=== PATIENT | female | born 1985 | race Caucasian/White ===

== ENCOUNTER 2022-04-27 23:51 | Emergency (ER) | payer BC, SELFPAY ==
[2022-04-27 23:52] VITALS: BP 115/49; PULSE 80; RESP 18; TEMP 36.8; O2SAT 100; BMI 30.7
--- NOTE | 2022-04-28 00:11 | US_ITS ---
We are attempting to reach an attending provider to discuss findings. An addendum with communication details will be sent when the communication is complete. STUDY: FIRST TRIMESTER OBSTETRICAL ULTRASOUND REASON FOR EXAM: Female, 36 years old bleeding, history of no cardiac activity of an embryo on recent OB ultrasound. LMP: 01/31/2022 TECHNIQUE: Transvaginal TECHNICAL QUALITY: Adequate. PRIOR ULTRASOUND: None. FINDINGS: There is visualization of a single gestational sac in the low lying position. There is an elongated distorted appearance of the gestational sac with a atypical shape. There is a visualized yolk sac. The yolk sac measures 2.4 m. The placenta is non-visualized. There is visualization of an embryo with no cardiac activity, consistent with intrauterine demise. The crown-rump length (CRL) measures 3.9 mm, indicating an estimated gestational age (EGA) of 6 weeks, 2 days. There is inhomogeneous appearance of the soft tissues surrounding the gestational sac. There is low-attenuation measures approximately 6.1 mm suggesting probable subchorionic hemorrhage. The estimated gestation age (EGA) by LMP is 9 weeks, 5 days. The estimated gestation age (EGA) by US is 6 weeks, 2 days. The uterus measures 9.2 x 6.0 x 4.9 cm. There is no demonstrated uterine fibroid. The cervix is closed. Partially visualized nabothian cysts. The right ovary measures 1 x 2.1 x 1.9 cm. There is no right ovarian cyst. There is no visualized right adnexal mass or complex lesion. The left ovary measures 2.5 x 2.1 x 2.0 cm. There is no left ovarian cyst. There is no visualized left adnexal mass or complex lesion. There is minimal fluid in the cul de sac. US/Transvaginal w/Preg US IMPRESSION: demise. The elongated distorted gestational sac is low lying. In combination with the clinical history of heavy bleeding consider spontaneous in progress. Electronically Signed: Corinne Smith MD at 1:40 EST ,
--- NOTE | 2022-04-28 00:12 | EDS_ITS ---
HPI HPI - Female History of Present Illness Chief Complaint: Vag Bld, Preg Informant: patient and spouse/S.O. Narrative Narrative: Patient presents with vaginal bleeding and clots. This is a G3, P1 female. She had miscarriage back in October. She is currently approximately 8 weeks . They were expecting miscarriage. She had a ultrasound this recent Thursday that showed no heartbeat. They were expecting to have some bleeding cramping. Patient has been bleeding for about 2 or so days but just very mildly. Later this evening around 6:00 it got heavier. She had large clot. She brought in one of the clots which is about 2-1/2 x 6 cm. She has had 1 of these at about 10:00. She had another 1 at about 11. She has had cramping with this but does not want anything for pain at this time. She has not seen any definite tissue. She called her OB physician, Dr. Sweet who referred her in here due to recurrent episodes of clot. She is on no anticoagulation. I did review her past outpatient records and find that she is blood type a positive back in December 2016. [facility] Medical History Miscarriage Home Medications vits,calcium no.78-iron fumarate-folic acid 29 mg-1 mg tablet (Prenatabs FA) 1 tab PO DAILY 01/29/17 [History Last Taken 01/28/17 20:00 1] sertraline 50 mg tablet 50 mg PO DAILY 04/27/22 [History Last Taken Unknown] Allergy/AdvReac Type Severity Reaction Status Date / Time hydrocodone [From Vicodin] Allergy Angioedema Verified 04/27/22 23:58 Social History Smoking Status: Never smoker ROS ROS ED Constitutional Constitutional ED: Denies fever(s) Cardiovascular Cardiovascular: Denies chest pain Respiratory/Chest Respiratory/Chest: Denies cough or dyspnea Gastrointestinal Gastrointestinal: Reports abdominal pain; Denies nausea or vomiting Genitourinary Genitourinary ED: Reports other Details: See history of present illness. ; Denies hematuria Musculoskeletal Musculoskeletal: Denies myalgias Integumentary Denies rash Neurologic Neurologic: Denies headache(s) Hematologic/Lymphatic Hematologic/Lymphatic: Denies easy bleeding or easy bruising Allergic/Immunologic Allergic/Immunologic ED: Denies urticaria EXAM Physical Exam Narrative Exam Narrative: Patient awake alert sitting in bed. No acute distress. When I first walked in she had been standing up. No dizziness. HEENT shows no notable pallor. Mucous membranes are moist. Neck is supple Heart is regular without murmur gallop or rub. Peripheral pulses are normal. Lungs are clear bilaterally. Breathing is easy unlabored and oxygen level is normal at 100% on room air saturation. Abdomen is soft. No real tenderness on exam at all. No distention. Bowel sounds are normal. shows no CVA or notable suprapubic tenderness. She does get some intermittent suprapubic cramping. Extremities show no edema or pallor. Const Vital Signs: 04/27/22 23:52 Temperature 98.2 F Temperature Source Temporal Pulse Rate 80 Respiratory Rate 18 Blood Pressure 115/49 L Blood Pressure Mean 71 Pulse Ox 100 Oxygen Delivery Method Room Air MDM MDM MDM Narrative Medical decision making narrative: Pelvic exam was done with nurse Gilda in attendance. External genitalia was normal. There was a clot in the vaginal vault. This was able to be removed. It was about 1 and half centimeters around and about 6 or 7 cm long. I looked through this and did not see any tissue or saclike material. Speculum was introduced. There is a little bit of blood and small clots in the vault. I am not seeing any active bleeding from the cervical os though. We placed a little pressure on the lower pelvic/abdomen area. No bleeding developed. I am not able to see any tissue at the cervical os although the os is soft and open. I called and discussed the case with Dr. Sweet who is on-call for the patient's OB physician Dr. Ortiz. Since the patient is having some bleeding and clots but is not hemorrhaging. She has had about 2 clots passed here. Her hemoglobin is 12 3 when it was about 13 in the office 5 days ago. She is comfortable. Plan will be to have her seen this morning in the office about 4- 1/2 hours from now. She will call the office at 8 in the morning. They will discuss how she is doing at that time. Hopefully she is able to pass some tissue at home and then the bleeding and clots should stop. If not, they may do an in office I passed procedure or schedule for out patient D&C. With stable vitals, comfortable, stable hemoglobin, and no heavy active bleeding, I do not think we need to do a D&C right now. We discussed all this with the patient. She is comfortable with this plan and reasons to follow-up that would primarily involve heavy bleeding, lightheadedness or any fevers. Lab Data Labs: Laboratory Results - last 24 hr 04/28/22 00:18 WBC 9.9 RBC 4.13 L Hgb 12.3 Hct 38.4 MCV 93.0 MCH 29.8 MCHC 32.0 RDW Std Deviation 41.1 RDW Coeff of Julianna 12.0 Plt Count 367 MPV 9.4 Immature Gran % (Auto) 0.500 Neut % (Auto) 73.6 H Lymph % (Auto) 17.8 L [place] % (Auto) 7.0 Eos % (Auto) 0.8 Baso % (Auto) 0.3 Absolute Neuts (auto) 7.3 Absolute Lymphs (auto) 1.76 Nucleated RBC % 0 Radiography Diagnostic Testing: Clinical Impression(s) from Imaging Studies Obstetrics Ultrasound 04/28/22 00:11 IMPRESSION: demise. The elongated distorted gestational sac is low lying. In combination with the clinical history of heavy bleeding consider spontaneous in progress. Electronically Signed: Corinne Smith MD at 1:40 EST Reading Location ID and State: [facility] / [place] Tel , Service support , ADDENDUM: 04/28/22 0154 IMPRESSION: demise. The elongated distorted gestational sac is low lying. In combination with the clinical history of heavy bleeding consider spontaneous in progress. N.B. : The above Results were Read Back by Corinne Smith MD to ANITA JARA MD, and understanding confirmed on 04/28/2022 01:47:43 (ET). Electronically Signed: Corinne Smith MD at 1:40 EST , Discharge Plan Triage Chief Complaint: Vag Bld, Preg ED Provider: Anita Jara Dx/Rx/DC Orders Clinical Impression: Miscarriage, Vaginal bleeding Instructions: ED Miscarriage Spontaneous Prescriptions: No Action Prenatabs FA 1 TABLET tablet 1 tab PO DAILY sertraline 50 mg tablet 50 mg PO DAILY Label Comments: TAKE 1 TABLET BY MOUTH EVERY DAY Primary Care Provider: Deysi Doran NP Referrals: Mariah Ortiz MD [Med Staff - Active Staff] - As soon as possible (Call the office at 8 AM this morning to be seen today.) Care Physician,No Primary [Non-Staff] - Disposition Disposition: Home, Self Care
[2022-04-28 00:29] LABS: Absolute Lymphocyte Count 1.76 X10^3/uL (0.83-4.51); Absolute Neutrophil Count 7.3 X10^3/uL (2.0-7.7); Basophil# 0.03 X10^3/uL; Basophil% 0.3 % (0-1); Eosinophil# 0.08 X10^3/uL; Eosinophils% 0.8 % (0-5); Hematocrit 38.4 % (37-47); Hemoglobin 12.3 g/dL (12.0-15.0); Lymphocyte # 1.76 X10^3/ul (0.83-4.51); Lymphocyte % 17.8 % (19-41); Mean Corpuscular Hgb 29.8 pg (27.0-32.0); Mean Platelet Vol. 9.4 fl (6.2-12.0); Monocyte# 0.69 X10^3/uL; NRBC Flagged by Analyzer 0 % (0-5); Neutrophil % 73.6 % (47-70); Platelet Count 367 K/mm3 (150-450); RBC Distribution Width SD 41.1 fl (35.1-43.9); Red Blood Count 4.13 M/mm3 (4.2-5.4); White Blood Count 9.9 K/mm3 (4.4-11.0)
[2022-04-28 03:28] VITALS: BP 128/78; PULSE 74; RESP 15; O2SAT 100
== END 2022-04-28 03:36 | disposition home or self-care (01) ==
PROVIDERS: Emergency Provider Emergency Medicine; PCP Registered Nurse; Visit Provider Emergency Medicine
DX: O03.9 Complete or unspecified spontaneous abortion without complication (principal); Z79.899 Other long term (current) drug therapy
CPT/HCPCS: 76817; 85025; 99283; A4216

== ENCOUNTER 2023-11-14 22:57 | Inpatient (IN) | payer BC, SELFPAY ==
[2023-11-14] VITALS (9 sets, daily range): BP systolic 114–140; BP diastolic 66–77; PULSE 68–81; O2SAT 96; BMI 34.6
[2023-11-14 22:05] LABS: Hematocrit 36.6 % (37-47); Hemoglobin 11.9 g/dL (12.0-15.0); Mean Corp Hgb Conc 32.5 g/dL (32-36); Mean Corpuscular Hgb 28.2 pg (27.0-32.0); Mean Corpuscular Volume 86.7 fL (81-99); Mean Platelet Vol. 10.6 fl (6.2-12.0); Platelet Count 298 K/mm3 (150-450); RBC Distribution Width CV 13.4 % (11.6-14.6); RBC Distribution Width SD 41.7 fl (35.1-43.9); Red Blood Count 4.22 M/mm3 (4.2-5.4); White Blood Count 10.7 K/mm3 (4.4-11.0)
[2023-11-14 22:09] LABS: Protein, Urine (Random) 39.1 mg/dL (<11.9); Protein:Creat Ratio 355 mg/g CRE (0-200)
[2023-11-14 22:19] LABS: AST(SGOT) 15 U/L (15-37); Alanine Aminotransfer ALT/SGPT 15 U/L (13-56); Creatinine, Serum 0.88 mg/dL (0.55-1.02); EST Glomerular Filtration Rate 77 mL/min (>60); Est Glom Filt Rate - Afr Amer 93 mL/min (>60); Estimated Creatinine Clearance 92.48 ml/min; Uric Acid 5.5 mg/dL (2.6-6.0)
[2023-11-14] MEDS: miSOPROStol 25 MCG TABLET PO (23:33)
[2023-11-14 23:43] LABS: Bedside Glucose 80 mg/dL (74-106)
[2023-11-15] VITALS (44 sets, daily range): BP systolic 68–139; BP diastolic 38–91; PULSE 62–107; RESP 16; TEMP 36.6–37.3; O2SAT 96–100
[2023-11-15] LABS: Syphilis Antibodies Non-reactive
[2023-11-15 00:50] LABS: Bedside Glucose 80 mg/dL (74-106)
--- NOTE | 2023-11-15 03:02 | HP.PCM.OB_ITS ---
HPI - General General Date of Admission: 11/14/23 HPI Narrative JUAN C STOUT, is a 37 F who presents at 38w1d with complaints of elevated BP at home. Had BP 140's/90's x2 and preceded to L&D. No headache, RUQ abdominal pain or scotoma. BP elevated x1 upon arrival and Protein Creatinine level elevated, decision for admission for preeclampsia. Maternal Data Information GALA Calculator Estimated Delivery Date Method Current WG Current Estimate 11/28/23 Manual 38w 1d PFSH PFS Medical History (Updated 11/15/23 @ 03:09 by Mandy Dunbar CNM) Depression Anxiety Pre-eclampsia Gestational HTN Gestational diabetes Miscarriage Home Medications ?Medication ?Instructions ?Recorded ?Last Taken ?Type vits,calcium no.78-iron 1 tab PO DAILY 01/29/17 11/13/23 History fumarate-folic acid 29 mg-1 mg tablet (Prenatabs FA) sertraline 50 mg tablet 50 mg PO DAILY 04/27/22 11/13/23 History Allergy/AdvReac Type Severity Reaction Status Date / Time hydrocodone (From Vicodin) Allergy Angioedema Verified 11/14/23 21:25 Surgical History (Updated 11/14/23 @ 23:31 by Dana Canseco) [place] teeth removed Social History Smoking Status: Never smoker History Elective abortions Hx Para 1 Spontaneous abortions Hx # Term Pregnancies Ectopic pregnancies Hx # Pregnancies Multiple births # of living children NST FHR Rate Baby A Baseline: 115 Variability:: Moderate Accelerations:: 15 x 15 Decelerations:: None FHR Category:: Category I Uterine Activity:: Irregular, mild Vital Signs Vital Signs Vital Signs: 11/14/23 21:08 11/14/23 21:08 11/14/23 21:24 Pulse Rate 81 Blood Pressure 134/76 H BP Systolic 134 BP Diastolic 76 Pulse Ox 96 11/14/23 21:24 11/14/23 21:36 11/14/23 21:36 Pulse Rate 79 71 Blood Pressure 140/75 H BP Systolic 140 BP Diastolic 75 Pulse Ox 11/14/23 21:55 11/14/23 21:55 11/14/23 22:05 Pulse Rate 77 Blood Pressure 114/67 120/66 BP Systolic 114 120 BP Diastolic 67 66 Pulse Ox 09/14/24 22:05 11/14/23 22:16 11/14/23 22:16 Pulse Rate 68 72 Blood Pressure 117/67 BP Systolic 117 BP Diastolic 67 Pulse Ox 11/14/23 22:25 11/14/23 22:25 11/14/23 22:36 Pulse Rate 78 Blood Pressure 122/68 H 138/77 H BP Systolic 122 138 BP Diastolic 68 77 Pulse Ox 11/14/23 22:36 11/14/23 22:45 11/14/23 22:45 Pulse Rate 81 76 Blood Pressure 127/72 H BP Systolic 127 BP Diastolic 72 Pulse Ox Weight Weight: 195 lb 9.6 oz Body Mass Index (BMI) 34.6 Physical Exam Const alert and oriented x3 General Appearance: cooperative Orientation / Consciousness: awake, oriented to person, oriented to place and oriented to time Exam Limitations: no limitations HEENT normocephalic Head and Scalp: normal to inspection, normocephalic and atraumatic Face and Sinus: normal facial exam Eyes General Eye: normal appearance of both eyes Neck full ROM Chest Chest: symmetrical chest wall rise Resp normal respiratory effort and normal air movement Auscultation: clear to auscultation bilaterally Cardio regular rate, regular rhythm, S1 normal heart sound, S2 normal heart sound, no murmurs, no rub, no gallops and no clicks GI normal to inspection, nondistended, normoactive bowel sounds and non-tender appearance of the vagina normal Bladder / Kidney Exam: no CVA tenderness Manual OB Exam: estimated gestational size appropriate, presentation cephalic, dilated 1, effaced 60, station -2 and other Richards inserted through cervix. 30ml NS instilled Back/Spine normal ROM Extremity normal to inspection and full ROM Skin no rashes or lesions noted Neuro oriented x3, CN's II-XII intact bilaterally and moves all extremities Sensorium / Orientation: awake, alert and oriented to person Motor Exam: clonus absent Deep Tendon Reflexes: Rt Patellar (L4): 2+ and Lt Patellar (L4): 2+ Labs Labs Labs: Blood Type A POSITIVE Antibody Screen NEGATIVE Hct 36.6 % (37-47) L Hgb 11.9 g/dL (12.0-15.0) L Obstetrics Ultrasound Syphilis Total Ab Non-reactive Rhogam given: No GBS negative RPR negative HepC negative HIV negative A positive HBsAG negative Rubella equivocal GC/CT negative Assessment & Plan (1) 38 weeks gestation of : (2) History of pre-eclampsia: (3) Obesity (BMI 30-39.9): COMMENT: Pregravid BMI 32 (4) Anemia affecting : (5) GDM, class A2: (6) MIKE (generalized anxiety disorder): PLAN: Plan 1) Admit to labor and delivery 2) Routine labs, preeclampsia labs completed, PC ratio elevated 3) Continuous EFM 4) Pain management upon request 5) Richards inserted for cervical ripening along with cytotec 6) Diabetes protocol 7) collaborative physician and notified of patient status, above assessment, and plan. Referral of care for physician management due to GDMA2
[2023-11-15] MEDS: 0.9% Normal Saline Single 100 ML IV.SOLN. INTRA-UTER (03:19)
[2023-11-15 03:48] LABS: Bedside Glucose 73 mg/dL (74-106)
[2023-11-15] MEDS: Lactated Ringers 1,000 ML 50 ML IV (05:07)
[2023-11-15] MEDS: Oxytocin 15 Units/NS 250ml 15 UNITS/250 ML IV.SOLN 2 UNITS IV (05:08)
--- NOTE | 2023-11-15 07:33 | PCM.PN.BLA ---
Progress Note pt seen at bedside, resting comfortably. Denies WEBSTER, visual changes or RUQ pain. VE: 4-5/70/-2 , AROM performed- Clear fluid. Pt unsure if she wants epidural would like to try without. FHR at this time is CAT1, reactive. Continue Pitocin. Anticipate . BPs WNL.
[2023-11-15] MEDS: Lactated Ringers 1,000 ML 999 ML IV (07:54)
[2023-11-15 07:57] LABS: Bedside Glucose 71 mg/dL (74-106)
[2023-11-15] MEDS: Oxytocin 15 Units/NS 250ml 15 UNITS/250 ML IV.SOLN 83 UNITS IV (09:15)
--- NOTE | 2023-11-15 09:15 | OP.PCM_ITS ---
Maternal Data Information GALA Calculator Estimated Delivery Date Method Current WG Current Estimate 11/28/23 Manual 38w 1d Vaginal Delivery Maternal Presentation Maternal Presentation: Medically Indicated Induction Maternal Presentation: Swelling, elevated BP at home, ONE mildly elevated BP in L&D with elevated Protein creatine Ratio Type of Induction: Pitocin, Richards Bulb and Cytotec Medical Reason for Induction: Preeclampsia, eclampsia Operative Information Date of Procedure: 11/15/23 Pre-Operative Diagnosis: Preeclampisa w/o severe features, GDMA2, AMA, Post-Operative Diagnosis: same, live female Surgery / Procedure Performed: Spontaneous Vaginal Delivery Estimated Blood Loss: 100 Time of Delivery: 08:43 Findings Description of Procedure: Patient progressed to fully dilated. Upon my arrival good maternal pushing efforts delivered the 's head followed by the anterior and posterior shoulder without delay. was placed on the mother's chest for immediate skin to skin. Infant was vigorous at time of delivery. Delayed cord clamping was performed. Once the cord was clamped and cut Pitocin was started and placenta was delivered intact without complication. Upon inspection of the vaginal and perineal tissue there was a second-degree perineal laceration and labial laceration on the right. This exposed a right Bartholin cyst. The cyst was mucinous ruptured with moderate amount of mucinous material. [id number] suture was placed in the Bartholin cyst area to achieve hemostasis and silver nitrate was applied. Good hemostasis was appreciated. The second-degree perineal laceration was repaired using 2-0 Vicryl and 3-0 Rap ana cristina. The right labial laceration was repaired using 3-0 Rapide Presentation: Vertex Amniotic Membrane Rupture Type: Artificial Amniotic Fluid Description: Clear Placental Delivery Description: Expressed Placenta Disposition: [facility] Specimen(s) Removed: Placenta Cord Vessel Description: 3 Vessels Cord Entanglement: None Nuchal Cord Compression: Without compression Infant A Gender: Female (1 minute): 9 (5 minute): 9 Delayed Cord Clamping: Yes Post Vaginal Delivery Medications Given After Delivery: IV Pitocin Episiotomy Description: None Laceration: Perineal Extension/lac (with right labial ) and 2nd degree Complication Complications: None
[2023-11-15] MEDS: Lidocaine 1% (20 ml mdv) 20 ML Vial INFILT (09:28)
[2023-11-15 10:04] LABS: Bedside Glucose 113 mg/dL (74-106)
[2023-11-15] MEDS: Silver Nitrate (BKC) 2 EACH TOPICAL (10:09)
[2023-11-15] MEDS: 0.9% Saline Lock 10 ML Syringe IV (12:51)
[2023-11-15 13:00] LABS: Hematocrit 36.5 % (37-47); Hemoglobin 11.6 g/dL (12.0-15.0); Mean Corp Hgb Conc 31.8 g/dL (32-36); Mean Corpuscular Hgb 28.2 pg (27.0-32.0); Mean Corpuscular Volume 88.8 fL (81-99); Mean Platelet Vol. 10.7 fl (6.2-12.0); Platelet Count 318 K/mm3 (150-450); RBC Distribution Width CV 13.5 % (11.6-14.6); RBC Distribution Width SD 43.8 fl (35.1-43.9); Red Blood Count 4.11 M/mm3 (4.2-5.4); White Blood Count 19.1 K/mm3 (4.4-11.0)
[2023-11-15] MEDS: Sertraline 50 MG Tablet PO (22:09)
[2023-11-15] MEDS: Ibuprofen 600 MG Tablet PO (22:12)
[2023-11-16 00:17] VITALS: BP 141/74; PULSE 71; RESP 16; TEMP 36.8
[2023-11-16 03:30] VITALS: BP 120/85; PULSE 84; RESP 16; TEMP 36.4
[2023-11-16 07:02] LABS: Bedside Glucose 90 mg/dL (74-106)
[2023-11-16 08:50] VITALS: BP 124/82; PULSE 72; RESP 16; TEMP 36.1; O2SAT 98
--- NOTE | 2023-11-16 08:53 | PCM.PN.OB ---
Subjective Subjective Pain well-controlled. Average lochia. Denies headache or visual changes. Objective Data Objective Data Vital Signs: Vital Signs Temp Pulse Resp BP Pulse Ox O2 Del Method 97.5 F L 84 16 120/85 H 100 Room Air 11/16/23 03:30 11/16/23 03:30 11/16/23 03:30 11/16/23 03:30 11/15/23 19:40 11/16/23 03:30 Oxygen Delivery Method Room Air Weight: 88.723 kg Body Mass Index (BMI) 34.6 Intake & Output: Intake and Output for Last 24 Hours 11/14/23 11/15/23 11/16/23 23:59 23:59 23:59 Intake Total 1040.48 / 1040.48 Output Total 1570 / 1570 Balance -529.52 / -529.52 -211 / -211 Lab / Micro Data 11/15/23 12:50 11/14/23 21:50 Labs: Laboratory Results - last 24 hr 11/15/23 09:42: POC Glucose 113 H 11/15/23 12:50: WBC 19.1 H, RBC 4.11 L, Hgb 11.6 L, Hct 36.5 L, MCV 88.8, MCH 28.2, MCHC 31.8 L, RDW Std Deviation 43.8, RDW Coeff of Julianna 13.5, Plt Count 318, MPV 10.7 11/16/23 06:37: POC Glucose 90 Physical Exam Narrative 1+ lower extremity edema, 3+ DTRs, 3 beats of clonus bilaterally Const alert and no apparent distress Narrative: Fundus firm, below umbilicus. Assessment & Plan (1) (spontaneous vaginal delivery): PLAN: Plan day #1 status post vaginal delivery. Patient and are doing well. Working on breast-feeding. Mild preeclampsia. Blood pressure stable. Will continue to monitor. Likely discharge home tomorrow with close surveillance of blood pressures. Patient does monitor blood pressures at home. GDM A2, blood sugars have been stable since delivery no further blood sugar checks at this time.
[2023-11-16] MEDS: Ibuprofen 600 MG Tablet PO ×2 (09:01→21:01)
--- NOTE | 2023-11-16 11:29 | CASEMGMT ---
Social Work Assessment Labor and Delivery Unit Patient Address: [address] [place] [address] [address] [place] [address] Phone number: [phone] Date of Referral:11/15/23 Time of Referral:? 1735 Referred By: Dr. Sharri Sweet Date of Intervention: ??11/16/23 Time of Intervention:? 1435 Reason for Referral:? anxiety, depression, on zoloft Sw completed chart review and acknowledges social work consult due to maternal mental health history. Sw presented to bedside and introduced self to mother of baby (AMANDEEP- Carina) and father of baby (DARIN- Alexander). Sw explained reason for sw involvement and completed psychosocial assessment. History obtained from: medical records, MOB and FOB Household composition: Currently residing in the family home is DARIN BERNSTEIN, their older son, Domo (almost 7 years old) and now baby when ready for discharge. Parents deny any issues or concerns with current housing- reporting that it is safe and secure. Patient's parent/guardian status:? ?Parents report that they have been together for 9 years after being introduced to each other through a mutual friend. No concerns reported of domestic violence or intimate partner violence. Medical History: ?AMANDEEP is 37 year old female who is 5, para 1- now 2 after several miscarriages. AMANDEEP received routine care during with [facility]. AMANDEEP presented to hospital in active labor and delivered baby via vaginal delivery. Baby girl, named Padma Sidhu, was born on 11/15/23 weighing 6lb 16oz with apgars of 9 and 9 at one and five minutes of life, respectfully. AMANDEEP states that she is breast feeding and has a pump for home. Baby will be followed by Dr. Vargas for pediatrics. Educational Status:? Both parents report to graduating from high school, and have associates degree. No issues with reading, learning or comprehension. Financial Status: Both parents are gainfully employed outside of the home. 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 Supplies:??Parents report to obtaining all necessary baby supplies, including: car seat, safe sleep space, clothes, diapers and wipes Childcare/Caregiver(s):? MOB will be the primary caregiver to baby along with FOB during maternity leave. When parents have returned to work they have a learning coach that they will be using. Transportation:?Both parents have their drivers license and reliable means of transportation. No barriers at this time. ? Programs/Agencies Involved: ??Parents are over income for community agencies that provide financial assistance. AMANDEEP is receiving medication management with her PCP. Children Services/Legal Issues:??? No history of children services involvement, no issues or concerns warranting children services referral at this time. Behavioral Health Issues: ??Mental Health History: FOB denies mental health history. MOB has history of anxiety and depression. MOB states that her biggest symptoms are constant worry or anxious thoughts. MOB states that her medication helps manage these symptoms. MOB states that she has healthy coping skills she utilizes to help her mental health such as spending time along in a quiet space. ?? Substance Use History:??Parents deny substance use prior to and during . Family History: Parents deny family history of addiction/ substance abuse and significant mental health history. ? Drug Screens: No drug screens observed in chart review. ?? Family/Social Stressors:? Parents deny any issues, concerns or stressors at this time. Support Systems: MOB identifies that FOB and her parents are her biggest supports. MOB states that paternal grandma is also a support as she lives closer to them than her family. Depression/Shaken Baby/Safe Sleeping:? Riccardo educated parents on signs and symptoms of baby blues and mood and anxiety disorders. Parents report that they are familiar with these terms and the symptoms to be on the lookout for. FOB states that if MOB were to struggle with her mental health during this period he would be able to recognize that she is struggling and believes that he would know how to help and support her. Riccardo educated parents on shaken baby prevention and ABCs of safe sleep. Parents express understanding. ASSESSMENT:?MOB and baby admitted following labor and delivery. MOB with mental health history positive for anxiety and depression- she is prescribed zolofy which she reports helps her. MOB was encouraged not to stop or discontinue medication during her period without the assistance of her prescribing doctor. MOB and FOB were both pleasant and engaging during assessment. Baby was observed to be sleeping comfortably in bedside bassinet. Parents have natural supports available to them and have obtained all necessary baby supplies. PLAN:? MOB and baby to be discharged when medically ready. MOB/ parents were provided with literature regarding: Help Me Grow, safe sleep, shaken baby prevention, [facility] and education regarding mood and anxiety disorders to be aware of. ?No other services requested or indicated. Kris Kline, PSS DELIVERY PROFESSIONAL, DISTRIBUTION DESIGNER
[2023-11-16 14:26] VITALS: BP 130/83; PULSE 75; RESP 16; TEMP 36.6; O2SAT 98
[2023-11-16 20:45] VITALS: BP 132/91; PULSE 102; RESP 16; TEMP 36.9; O2SAT 98
[2023-11-16] MEDS: Sertraline 50 MG Tablet PO (21:02)
[2023-11-16] MEDS: Senna/Docusate Sodium 1 Tablet PO (21:09)
[2023-11-17 00:02] VITALS: BP 137/90; PULSE 75; RESP 16; TEMP 36.5; O2SAT 97
[2023-11-17 04:45] VITALS: BP 133/86; PULSE 74; RESP 16; TEMP 36.6; O2SAT 96
[2023-11-17] MEDS: Ibuprofen 600 MG Tablet PO ×2 (04:59→11:37)
--- NOTE | 2023-11-17 08:32 | PCM.PN.OB ---
Subjective Subjective Denies complaints Objective Data Objective Data Vital Signs: Vital Signs Temp Pulse Resp BP Pulse Ox O2 Del Method 97.8 F 74 16 133/86 H 96 Room Air 11/17/23 04:45 11/17/23 04:45 11/17/23 04:45 11/17/23 04:45 11/17/23 04:45 11/17/23 04:45 Oxygen Delivery Method Room Air Weight: 195 lb 9.6 oz Body Mass Index (BMI) 34.6 Intake & Output: Intake and Output for Last 24 Hours 11/15/23 11/16/23 11/17/23 23:59 23:59 23:59 Intake Total 1040.48 / 1040.48 Output Total 1570 / 1570 211 / 211 Balance -529.52 / -529.52 -211 / -211 Lab / Micro Data 11/15/23 12:50 11/14/23 21:50 Physical Exam Const alert, oriented x3 and no apparent distress HEENT normocephalic GI soft to palpation, non-tender and non-distended GI Narrative: fundus firm, mid & below umbilicus Extremity normal to inspection and no calf tenderness Assessment & Plan (1) (spontaneous vaginal delivery): COMMENT: PPD#1 (2) Pre-eclampsia: QUALIFIERS: Trimester: third trimester Qualified Code(s): O14.93 - Unspecified pre-eclampsia, third trimester PLAN: Plan for d/c to home later today Preeclampsia (mild) - reviewed preE precautions and BP expectations
--- NOTE | 2023-11-17 08:34 | DS.PCM_ITS ---
Providers Date of Admission: 11/14/23 Date of Discharge: 11/17/23 Primary Care Physician: MIKE Acosta Reason For Visit: LABOR Diagnosis Discharge Diagnosis (1) (spontaneous vaginal delivery): Status: Acute Code(s): O80 - Encounter for full-term uncomplicated delivery (2) Pre-eclampsia: Status: Acute Code(s): O14.90 - Unspecified pre-eclampsia, unspecified trimester Qualifiers: Trimester: third trimester Qualified Code(s): O14.93 - Unspecified pre- eclampsia, third trimester Plan: Plan for d/c to home later today Preeclampsia (mild) - reviewed preE precautions and BP expectations Medications at Discharge Home Medications vits,calcium no.78-iron fumarate-folic acid 29 mg-1 mg tablet (Prenatabs FA) 1 tab PO DAILY 01/29/17 sertraline 50 mg tablet 50 mg PO DAILY 04/27/22 acetaminophen 500 mg tablet 1,000 mg (2 x 500 mg) PO Q6H PRN PRN Pain 1-10 Or Fever #0 tabs 11/17/23 ibuprofen 600 mg tablet 600 mg PO Q6H PRN PRN Pain Score 1-10 #0 tabs 11/17/23 Hospital Course Operations None Summary of Care Provided Minutes Spent on Discharge: 15 Weight / BMI Weight Weight: 195 lb 9.6 oz Body Mass Index (BMI) 34.6 ABG / Lab / Microbiology Data 11/15/23 12:50 11/14/23 21:50 D/C Instructions Discharge Diet: No restrictions May resume sexual activity in: 6 weeks Weight Bearing Status: Weight bearing as tolerated Call your doctor if your incision/area has: Continuous Slow Oozing, Sudden Increased Bleeding, Increased Pain/ Swelling, Increased Redness, Foul Smelling Discharge and Swelling at the incision site Call your doctor if you observe: Fever of 101 or Higher, Coldness, Increased Pain, Change in Color, Inability to urinate, Inability to have a bowel movement, Using more than 1 pad per hour, Shortness of breath, Dizziness, Fainting spells, Chest pain, Increased palpitations (irregular heartbeat), Calf discomfort and Uncontrolled pain Suture Line Care: Avoid Pulling/Pushing and Avoid Pinching/Bending Remove Dressing in: 1 week Cleanse incision/area with: Soap & Water Please Follow Up With: Elaine Massey MD When: Follow up in 2 and 6 weeks for visits. Meaningful Use Info Meaningful Use Meaningful Use Diagnoses (Choose all that apply): None applicable Ischemic Stroke Statin Dosing Therapy Reference: STATIN DOSE THERAPY REFERENCE: * Patients > 75 years receive moderate or high dose statin therapy. * Patients 75 years or YOUNGER should receive HIGH intensity statin dose unless contraindicated. You will be required to document reason for non-treatment if statin daily dose does not meet guidelines. HIGH DOSE STATIN THERAPY DAILY Atorvastatin > than or = to 40 mg Rosuvastatin > than or = to 20 mg Amlodipine + Atorvastatin > than or = to 2.5/40 mg Ezetimibe + Simvastatin 10/80 mg Simvastatin 80mg Discharge Plan Admission Admit Date/Time: 11/14/23 22:57 Primary Reason for Your Visit: Vaginal delivery Attending Provider: Mandy Dunbar Primary Care Provider: Deysi Doran NP Discharge Orders/Prescriptions Prescriptions: New acetaminophen 500 mg Tablet 1,000 mg PO Q6H PRN PRN (Reason: Pain 1-10 Or Fever) Qty: 0 0RF ibuprofen 600 mg Tablet 600 mg PO Q6H PRN PRN (Reason: Pain Score 1-10) Qty: 0 0RF Continued Prenatabs FA 1 TABLET tablet 1 tab PO DAILY sertraline 50 mg tablet 50 mg PO DAILY Patient Comments: TAKE 1 TABLET BY MOUTH EVERY DAY Referrals / Follow Up: Deysi Doran NP, [facility] [Primary Care Provider] - Disposition Disposition (needs filled in before D/C Order can be placed): Home, Self Care
[2023-11-17 09:09] VITALS: BP 132/80; PULSE 70; RESP 16; TEMP 36.7; O2SAT 98
[2023-11-17] MEDS: Senna/Docusate Sodium 1 Tablet PO (11:37)
--- NOTE | 2023-11-23 15:05 | NURSING ---
Follow up phone call made. Patient states she is doing well, denies any pain, headaches, or visual disturbances. States her bleeding is minimal. is going well, nursing Padma every 2-3 hours. States Padma is having 6-8 wets diapers a day and a stool with almost every feeding. Denies any questions or concerns at this time.
== END 2023-11-17 12:20 | disposition home or self-care (01) | DRG 807 ==
LOC: WPOUT 22:58 → WP 22:58
PROVIDERS: Obstetrics & Gynecology; Admitting Provider Advanced Practice Midwife; PCP Registered Nurse; Referring Provider Advanced Practice Midwife; Visit Provider Advanced Practice Midwife
DX: O14.04 Mild to moderate pre-eclampsia, complicating childbirth (principal); Z37.0 Single live birth; O24.429 Gestational diabetes mellitus in childbirth, unspecified control; F41.1 Generalized anxiety disorder; O99.214 Obesity complicating childbirth; O99.02 Anemia complicating childbirth; O70.1 Second degree perineal laceration during delivery; O99.344 Other mental disorders complicating childbirth; O99.892 Other specified diseases and conditions complicating childbirth; N75.0 Cyst of Bartholin's gland; Z3A.38 38 weeks gestation of pregnancy; Z79.899 Other long term (current) drug therapy
CPT/HCPCS: 59025; 59050; 82565; 82570; 82962; 84156; 84450; 84460; 84550; 85027; 86780; 86850; 86900; 86901; 99221; J7120; A4216; G0378